=== PATIENT | female | born 1995 ===

== ENCOUNTER 2018-02-15 07:41 | Day surgery (SDC) | payer OTHER ==
[~2018-02-15] VITALS: Ht 175.3 cm; Wt 77.3 kg
[~2018-02-15 07:41] MED LIST: Amoxicillin875 MG PO; BIRTH CONTROL PO; CYCL10 PO; IBUP600 PO; Naprosyn500 MG PO; Norco 5-325 Ta1 EACH PO; Veetids 500500 MG PO
== END 2018-02-15 10:56 | disposition home or self-care (01) ==
LOC: ORSCSDS 07:41
PROVIDERS: Obstetrics & Gynecology
PROC: 0U5F4ZZ Destruction of Cul-de-sac, Percutaneous Endoscopic Approach (ICD-10-PCS; principal; 2018-02-15 09:00)
PROC: 0UT74ZZ Resection of Bilateral Fallopian Tubes, Percutaneous Endoscopic Approach (ICD-10-PCS; principal; 2018-02-15 09:00)
DX: Z30.2 Encounter for sterilization (principal); N80.3 Endometriosis of pelvic peritoneum
CPT/HCPCS: 88302; J0171; J0690; J1100; J1885; J2250; J2405; J2710; J3010; J7120

== ENCOUNTER 2019-02-03 09:53 | Emergency (ER) | payer OTHER ==
[~2019-02-03] VITALS: Ht 175.3 cm; Wt 90.7 kg
[2019-02-03] MEDS ORDERED: Veetids 500500 MG PO (11:12)
[2019-02-03] MEDS ORDERED: Ultram50 MG PO (11:12)
== END 2019-02-03 11:27 | disposition home or self-care (01) ==
LOC: ER 09:53
DX: K02.9 Dental caries, unspecified (principal)
CPT/HCPCS: 99282

== ENCOUNTER → 2019-06-14 | Outpatient (CLI) | payer OTHER ==
[~2019-06-14] MED LIST changes: +Augmentin 875-1 EACH PO; +Ultram50 MG PO
== END | disposition home or self-care (01) ==
LOC: LAB 11:19 → LAB SHORT 11:19 → LAB FUT 05-30 11:10
PROVIDERS: Family Medicine
DX: N91.1 Secondary amenorrhea (principal)
CPT/HCPCS: 82530

== ENCOUNTER 2019-12-29 09:57 | Emergency (ER) | payer OTHER ==
[~2019-12-29] VITALS: Ht 170.2 cm; Wt 83.9 kg
[2019-12-29] MEDS ORDERED: ONDA4ODT MM (11:06)
[2019-12-29] MEDS ORDERED: Ultram50 MG PO (11:06)
[2019-12-29] MEDS ORDERED: Veetids 500500 MG PO (11:12)
== END 2019-12-29 11:15 | disposition home or self-care (01) ==
LOC: ER 09:57
DX: K04.7 Periapical abscess without sinus (principal); G43.909 Migraine, unspecified, not intractable, without status migrainosus; Z91.040 Latex allergy status
CPT/HCPCS: 10160; 99283-25; A9270-GY

== ENCOUNTER 2021-05-09 14:44 | Emergency (ER) | payer OTHER ==
[~2021-05-09] VITALS: Ht 172.7 cm; Wt 86.2 kg
[~2021-05-09 14:44] MED LIST changes: +ONDA4ODT MM
[2021-05-09] MEDS ORDERED: MUPIROCIN1 G1 TOP (15:52)
== END 2021-05-09 16:13 | disposition home or self-care (01) ==
LOC: ER 14:44
DX: L01.00 Impetigo, unspecified (principal); Z91.040 Latex allergy status; Z79.899 Other long term (current) drug therapy
CPT/HCPCS: 99282; A9270

== ENCOUNTER → 2021-06-19 | Outpatient (CLI) | payer OTHER ==
[~2021-06-19] MED LIST changes: +MUPIROCIN1 G1 TOP
[2021-06-21 17:09] LABS: HPV 16 Negative (Negative); HPV 18 Negative (Negative); HPV OTHER HR TYPES Negative (Negative)
== END ==
LOC: LAB SHORT 09:40
PROVIDERS: Registered Nurse Community Health
DX: Z12.4 Encounter for screening for malignant neoplasm of cervix (principal)
CPT/HCPCS: 87624; G0123

== ENCOUNTER → 2021-12-31 | Outpatient (CLI) | payer OTHER | LOC: LAB SHORT 15:40 → LAB 15:40 | DX: L29.3 Anogenital pruritus, unspecified (principal) | CPT/HCPCS: 87070; 87077; 87186; 87205 ==

== ENCOUNTER → 2022-12-09 | Outpatient (CLI) | payer OTHER ==
[2022-12-09 19:30] LABS: BASOPHILS ABSOLUTE AUTO 0.02 K/mm3 (0.00-0.23); BASOPHILS PERCENT AUTO 0 % (0-2); EOSINOPHILS PERCENT AUTO 1 % (0-6); Hematocrit 43.5 % (33.0-51.0); Hemoglobin 14.5 g/dL (11.5-16.0); IMMATURE GRAN ABSOLUTE AUTO 0.01 K/mm3 (0.00-0.10); IMMATURE GRAN PERCENT AUTO 0 % (0-1); LYMPHOCYTES ABSOLUTE AUTO 3.23 K/mm3 (0.84-5.20); LYMPHOCYTES PERCENT AUTO 36 % (21-46); MONOCYTES ABSOLUTE AUTO 0.46 K/mm3 (0.16-1.47); MONOCYTES PERCENT AUTO 5 % (4-13); Mean Corpuscular HGB 27.3 pg (26.0-34.0); Mean Corpuscular HGB Conc 33.3 g/dL (31.5-36.5); Mean Corpuscular Volume 82 fL (80-100); Mean Platelet Volume 10.5 fL (9.1-12.4); NEUTROPHILS ABSOLUTE AUTO 5.29 K/mm3 (1.96-9.15); NEUTROPHILS PERCENT AUTO 58 % (41-73); Platelet Count 300 K/mm3 (150-400); RDW Standard Deviation 38.6 fL (35.1-46.3); Red Blood Cell Count 5.32 M/mm3 (3.80-5.20); White Blood Cell Count 9.11 K/mm3 (4.00-11.30)
[2022-12-09 21:32] LABS: Albumin, Blood 3.9 g/dL (3.4-5.0); Albumin/Globulin Ratio 0.9 (0.8-1.8); Bilirubin, Total 0.4 mg/dL (0.1-1.0); Bun/Creatinine Ratio 18.8 (12.0-20.0); Calcium, Blood 9.3 mg/dL (8.5-10.1); Creatinine, Blood 0.75 mg/dL (0.40-1.00); Globulin, Blood 4.2 g/dL (2.2-4.0); Potassium, Blood 3.6 mmol/L (3.5-5.5); Thyroid Stimulating Hormone 1.31 uIU/mL (0.360-4.800); Total Protein, Blood 8.1 g/dL (6.4-8.2)
== END | disposition home or self-care (01) ==
LOC: LAB 17:20 → LAB SHORT 17:20
PROVIDERS: Nurse Practitioner Family
DX: Z13.29 Encounter for screening for other suspected endocrine disorder (principal); L30.9 Dermatitis, unspecified
CPT/HCPCS: 80053; 84443; 85025